=== PATIENT | female | born 1940 ===

== ENCOUNTER 2017-08-06 10:47 | Inpatient (IN) | payer BC, OTHER ==
[2017-06-29 11:24] VITALS: BMI 26.0
--- NOTE | 2017-06-29 11:58 | PAT Medication Instructions ---
Service Date Jun 29, 2017. Current Home Medication List Aspirin (Aspirin Ec), 81 MG PO QAM Calcium/Vitamin D (Os-Shimon 500 Plus D), 1 TAB PO QAM Carbidopa (Carbidopa), 25 MG PO QID Carbidopa/Levodopa (Sinemet 25MG/100MG), 1 TAB PO TID Carbidopa/Levodopa (Sinemet Cr 25MG/100MG), 2 TAB PO HS Cyanocobalamin (Vitamin B-12), 1,000 MCG PO QAM Rasagiline Mesylate (Azilect), 1 MG PO QAM Medication Instructions For Your Scheduled Surgery - Hold the following medications 2 weeks prior to surgery: Rasagiline Mesylate (Azilect), 1 MG PO QAM (okay per neurology) - Hold the following medications the morning of surgery: Cyanocobalamin (Vitamin B-12), 1,000 MCG PO QAM Calcium/Vitamin D (Os-Shimon 500 Plus D), 1 TAB PO QAM - Take the following medications the morning of surgery with a sip of water: Carbidopa/Levodopa (Sinemet 25MG/100MG), 1 TAB PO TID Carbidopa (Carbidopa), 25 MG PO QID Aspirin (Aspirin Ec), 81 MG PO QAM - Take the following medications as scheduled the night before surgery: Carbidopa (Carbidopa), 25 MG PO QID Carbidopa/Levodopa (Sinemet Cr 25MG/100MG), 2 TAB PO HS Carbidopa/Levodopa (Sinemet 25MG/100MG), 1 TAB PO TID If you have any questions please call us at [phone] or [phone] or [phone]
--- NOTE | 2017-06-29 12:51 | DIAGNOSTIC IMAGING REPORT ---
CHEST PREADMISSION(PA/LAT) HISTORY: 76 years-old Female PAT preadmission exam. No acute chest complaints COMPARISON: None available TECHNIQUE: Frontal and lateral views of the chest FINDINGS: Cardiomediastinal and hilar silhouettes are within normal limits. There is atherosclerosis of the aorta. No pneumothorax, pleural effusion, focal airspace consolidation or overt pulmonary edema. Hazy bibasilar opacities on the frontal projection are not appreciated on the lateral view, likely secondary to composite density artifact. The bones appear grossly intact. Cholecystectomy clips are noted. IMPRESSION: No acute cardiopulmonary process. The above report was generated using voice recognition software. It may contain grammatical, syntax or spelling errors. Electronically signed by: Tyler Rea M.D. 06/29/2017 12:50 PM Dictated Date/Time: 06/29/2017 12:49 PM
[2017-06-29 13:05] LABS: PTT PATIENT 25.9 SECONDS (21.0-31.0)
[2017-06-29 13:31] LABS: HEMOGLOBIN A1C 6.4 % (4.5-5.6)
[2017-06-29 13:36] LABS: ALBUMIN 3.5 gm/dl (3.4-5.0); CALCIUM 9.5 mg/dl (8.5-10.1); CREATININE 0.96 mg/dl (0.60-1.20); POTASSIUM 4.8 mmol/L (3.5-5.1)
--- NOTE | 2017-07-11 11:53 | HISTORY & PHYSICAL EXAMINATION ---
DATE OF ADMISSION: 07/12/2017 CHIEF COMPLAINT: Painful left total knee. HISTORY OF PRESENT ILLNESS: The patient is a 76-year-old female status post previous left total knee arthroplasty by an outside physician. She was recently evaluated by Dr. West for ongoing pain and disability. X-rays were suggestive of possible loosening about her tibial and femoral components. She had infectious workup with negative blood work and aspiration. She had a bone scan which was suggestive of possible aseptic loosening. She is now scheduled for a left total knee revision arthroplasty. PAST MEDICAL HISTORY: Parkinson's disease, peripheral neuropathy, restless leg syndrome, type 2 diabetes. PAST SURGICAL HISTORY: Left total knee as above, cholecystectomy. MEDICATIONS: Carbidopa 25 mg 3 times daily, calcium plus D 500/400 mg twice daily, Azilect 1 mg daily, carbidopa/levodopa 25/100 two tablets at bedtime, carbidopa/levodopa 25/100 four times daily, aspirin 81 mg daily, vitamin B12 250 mcg daily, Voltaren gel as needed. ALLERGIES: OMEPRAZOLE, PATANOL, ROFECOXIB, SULFA. SOCIAL HISTORY AND REVIEW OF SYSTEMS: Noncontributory. PHYSICAL EXAMINATION: GENERAL: Well-nourished, well-developed elderly lady who appears her stated age. HEAD, EYES, EARS, NOSE, AND THROAT: Normocephalic, atraumatic, extraocular movements intact, oropharynx pink and moist. NECK: Supple without adenopathy. LUNGS: Clear to auscultation bilaterally. HEART: Regular rate and rhythm. ABDOMEN: Soft, nontender, nondistended. EXTREMITIES: The upper extremity within normal limits. The left knee is neutrally aligned. She has a well-healed midline incision from her previous arthroplasty. Her range of motion from 0-120 degrees. X-RAYS: X-rays were reviewed. She has a total knee in place. There is lucency about both the femoral and tibial components. Her bone scan shows increased uptake about both femoral and tibial components suggestive of possible aseptic loosening. ASSESSMENT: Left knee pain status post previous total knee arthroplasty, likely aseptic loosening. PLAN: The above discussed with the patient. Risks versus benefits were discussed. Consent was obtained. The patient's primary care physician is Dr. Clayton. She has had previous blood work and aspiration which was negative for septic process. Will proceed with left total knee revision arthroplasty upon preop workup and medical clearance.
[~2017-08-06] VITALS: Ht 157.5 cm; Wt 65.0 kg
[2017-08-06] VITALS (7 sets, daily range): BP systolic 93–135; BP diastolic 57–69; PULSE 61–79; TEMP 36.3–36.6; O2SAT 93–99; Ht 157.5 cm; Wt 65.0 kg
[~2017-08-06 10:47] MED LIST: ACETAMINOPHEN 500 MG TAB PO SCH; ASPI81TA28 PO; BUPIVACAINE 0.25% 30 ML VIAL ONE; BUPIVACAINE 0.5 % 5 MG/1 ML PF 10ML VIAL ONE; CALC500C70 PO; CARB1TAB94 PO; CARB25TA12 PO; CARB25TA16 PO; CYAN10005 PO; CeleBREX 200 MG CAP PO SCH; DEXAMETHASONE 4 MG TAB PO SCH; DEXAMETHASONE SOD INJ 4 MG/ML VIAL ONE; EpINEphrine INJ 1MG/ML AMP 1 MG/ML AMP ONE; FAMOTIDINE 20 MG TAB PO SCH; GABAPENTIN 300 MG CAP PO SCH; LACTATED RINGER'S 1000ML 1,000 ML IV SCH; LACTATED RINGER'S 1000ML 500 ML IV ONE; LACTATED RINGER'S 1000ML IV SCH; METOCLOPRAMIDE HCL 10 MG TAB PO SCH; RASA1TAB PO; ROPIVACAINE 5MG/ML 30 ML 150 MG, BUPIVACAINE 0.5% MPF INJ 30 ML, EpINEphrine HCL INJ 0.... INFIL SCH; ROPIVACAINE 5MG/ML 30 ML 150 MG, BUPIVACAINE/EPINEPHR 0.5% MPF 30 ML, KETOROLAC TROMETH... INFIL SCH; TRANEXAMIC ACID INJ 1,000 MG in SODIUM CHLORIDE 0.9% 100ML 100 ML IV SCH; TRANEXAMIC ACID INJ 1,000 MG in SYRINGE 0 ML IV SCH; VANCOMYCIN 1GM ED/ASU OMNICELL 270 ML IV SCH; [UNRECOGNIZED DRUG - REMARK] SCH
--- NOTE | 2017-08-06 10:56 | History & Physical Bridge Note ---
H&P Re-Evaluation Bridge Note: I have examined the patient, reviewed the History & Physical and in the interval since the performance of the History & Physical I have noted the following changes of clinical significance: No changes noted
[2017-08-06] MEDS ORDERED: ONDANSETRON INJ 2 MG/ML 2 ML VIAL ONE (11:10)
[2017-08-06] MEDS ORDERED: LIDOCAINE HCL 2% 2 ML VIAL (20MG/ML) ONE (11:10)
[2017-08-06] MEDS ORDERED: PROPOFOL IV EMULSION 10 MG/ML 20 ML VIAL IV ONE ×2 (11:10→14:40)
[2017-08-06] MEDS ORDERED: FENTANYL CITRATE INJ 50 MCG/1 ML 2 ML VIAL ONE (11:11)
[2017-08-06] MEDS ORDERED: MIDAZOLAM HCL 1 MG/ML 2ML VIAL ONE (11:11)
--- NOTE | 2017-08-06 11:54 | History & Physical Bridge Note ---
H&P Re-Evaluation Bridge Note: I have examined the patient, reviewed the History & Physical and in the interval since the performance of the History & Physical I have noted the following changes of clinical significance: No changes notedDate of service now 08/06/2017
[2017-08-06] MEDS ORDERED: ATROPINE SULFATE 0.1 MG/ML 5ML SYR IV PRN (12:00)
[2017-08-06] MEDS ORDERED: ONDANSETRON INJ 2 MG/ML 2 ML VIAL IV PRN ×2 (12:00→15:45)
[2017-08-06] MEDS ORDERED: EpHEDrine SULFATE INJ 50 MG/ML AMP IV PRN (12:00)
[2017-08-06] MEDS ORDERED: CARBIDOPA PO (12:27)
[2017-08-06] MEDS ORDERED: BACITRACIN 50000 UNIT VIAL ONE (12:32)
[2017-08-06] MEDS ORDERED: ORTHO JOINT ANESTHETIC ONE (12:32)
[2017-08-06] MEDS ORDERED: POVIDONE-IODINE OP SOLN 30 ML BTL ONE (12:35)
[2017-08-06] MEDS: TRANEXAMIC ACID INJ 1,000 MG in SYRINGE 0 ML IV SCH ×2 (12:51→16:52)
[2017-08-06] MEDS ORDERED: EpHEDrine SULFATE INJ 50 MG/ML AMP ONE (14:02)
--- NOTE | 2017-08-06 15:14 | OPERATIVE REPORT ---
DATE OF OPERATION: 08/06/2017 PREOPERATIVE DIAGNOSIS: Aseptic loosening, left total knee. POSTOPERATIVE DIAGNOSIS: Aseptic loosening, left total knee. PROCEDURE: Revision left total knee. IMAGING NURSE: Alex Huynh PA-C. ANESTHESIA: Spinal. COMPLICATIONS: None. NOTE: Mr. Huynh was essential throughout all portions of the case including positioning, prepping, draping, executive marketing assistant, wound closure and dressing application. DESCRIPTION OF PROCEDURE: Following induction of spinal anesthesia, the patient's left leg was prepped and draped in usual sterile manner. Limb was exsanguinated with an Esmarch bandage, tourniquet inflated to 300 mmHg. Previously made incision was reopened. Subcutaneous tissue was sharply dissected. Electrocautery was used for hemostasis. The median parapatellar incision was made and a complete synovectomy was carried out. The medial face of the tibia was cleared using electrocautery and a Noriega and scar on the undersurface of the patella was removed to further mobilize the patella. A lateral snip was required. Following this, the tibia was removed. The knee was brought into flexion and flexible osteotome was used to free the undersurface of the femoral component which was then disimpacted with a punch and a mallet. The cruciate ligaments were removed with a fragment of bone from the intercondylar notch. Next, attention was turned to the tibia where the tool was used to grasp the proximal tibia and this was disimpacted with ease after undermining the tibia with both oscillating and reciprocating saws. The patella was felt to be intact. The canals were first opened using a drill and sequential reamings were carried up to a size 10 on the tibial side and a size 15 on the femoral side. Tibial cleanup cut was made and a 4 mm offset was chosen for the tibia and the proximal tibia was prepared using the box reamer and punch and a mallet. Next, this reamer was utilized and trial tibial component was cemented into position. After further opening the proximal tibia slightly with the boss reamer medially and laterally, the tibia was impacted into position. The sequential scarring from the posterior aspect of the tibia was removed using a Bovie. Next, attention was turned to the distal femur where a size 4 tibia was chosen as the size to be used. The decision made to go with both 5 mm posterior and 5 mm distal augments. These cuts were made using appropriate slots and the intercondylar notch was cut using the reciprocating saw. Following this, the trial femur was assembled and some additional anterior trimming using an oscillating saw was carried out. The trial femur was impacted in position and trials using the polyethylene were noted to give good reproduction of soft tissue tension with good ligament balance in flexion and extension using a 13 mm poly. Constrained poly was not required. Following this, all trials were removed. The final components were assembled on the back table and the knee was thoroughly irrigated with pulsatile irrigation. Perioperative joint mix was placed posteriorly and medially and laterally. Cement was mixed and the final components were cemented into position. After removal of all excess cement, the knee was thoroughly irrigated with pulsatile irrigation. A lateral snip was closed using #1 FiberWire suture. The Betadine soak was utilized and the wound was closed over Hemovac drain using #1 Mersilene. Subcutaneous tissue was closed using 0 Dexon. Skin was closed with ____. A sterile dressing of Silverlon, sterile Webril, and Chip was applied. The patient tolerated the procedure well. I attest to the content of the Intraoperative Record and any orders documented therein. Any exceptions are noted below. JESSICA
[2017-08-06] MEDS ORDERED: DiphenhydrAMINE HCL 50 MG/ML VIAL IV PRN (15:45)
[2017-08-06] MEDS ORDERED: BISACODYL 10 MG SUPP PR PRN (15:45)
[2017-08-06] MEDS ORDERED: MoRPHine SULFATE 2 MG/ML CARP IV PRN (15:45)
[2017-08-06] MEDS ORDERED: SOD PHOSPHATE/SOD BIPHOSPHATE ENEMA 132 ML BTL PR PRN (15:45)
[2017-08-06] MEDS ORDERED: MAGNESIUM HYDROXIDE SUSP 30 ML UDC PO PRN (15:45)
[2017-08-06] MEDS ORDERED: TRAMADOL HCL 50 MG TAB PO PRN (15:45)
[2017-08-06] MEDS ORDERED: ZOLPIDEM TARTRATE 5 MG TAB PO PRN (15:45)
--- NOTE | 2017-08-06 16:09 | Anesthesiology Progress Note ---
Anesthesia Post Op Note Date & Time Aug 06, 2017 at 16:08 Vital Signs Pain Intensity: 0 Vital Signs Past 12 Hours Date Time Temp Pulse Resp B/P (MAP) Pulse Ox O2 Delivery O2 Flow Rate FiO2 08/06/17 16:05 36.8 70 16 114/54 97 Nasal Cannula 2 08/06/17 16:00 70 16 106/55 98 Nasal Cannula 2 08/06/17 15:50 69 16 108/53 98 Nasal Cannula 2 08/06/17 15:40 70 16 106/55 100 Oxymask 10 08/06/17 15:30 36.7 69 16 110/52 100 Oxymask 10 08/06/17 11:43 36.6 74 20 135/68 96 Room Air Notes Mental Status: alert / awake / arousable, participated in evaluation Pt Amnestic to Procedure: Yes Nausea / Vomiting: adequately controlled Pain: adequately controlled Airway Patency, RR, SpO2: stable & adequate BP & HR: stable & adequate Hydration State: stable & adequate Neuraxial Anesthesia: was administered, sensory block is resolving Anesthetic Complications: no major complications apparent
--- NOTE | 2017-08-06 16:21 | DIAGNOSTIC IMAGING REPORT ---
L KNEE 1 OR 2 VIEWS ROUTINE HISTORY: 76 years-old Female AP/LATERAL IN PACU LEFT KNEE status post left knee total joint arthroplasty. Degenerative joint disease. COMPARISON: None available TECHNIQUE: 2 views of the left knee FINDINGS: Postoperative changes compatible with a hinged total joint arthroplasty and patellar resurfacing are noted. Anterior midline skin reyes. Expected postsurgical soft tissue swelling and deep tissue air with surgical drain in place. No periprosthetic fracture, malalignment or retained foreign body identified. IMPRESSION: Status post placement of a hinged left knee total joint arthroplasty with patellar resurfacing. No complication identified. The above report was generated using voice recognition software. It may contain grammatical, syntax or spelling errors. Electronically signed by: Tyler Rea M.D. 08/06/2017 4:20 PM Dictated Date/Time: 08/06/2017 4:19 PM
[2017-08-06] MEDS: SODIUM CHLORIDE 0.9% 1000ML 1,000 ML IV SCH (18:01)
[2017-08-06] MEDS: ACETAMINOPHEN 500 MG TAB PO SCH (18:03)
[2017-08-06] MEDS: KETOROLAC TROMETHAMINE 15 MG/ML VIAL IV. SCH ×2 (18:03→21:45)
[2017-08-06] MEDS ORDERED: NURSING VERBAL MED ORDER ONE ×2 (18:30→18:45)
[2017-08-06] MEDS ORDERED: CARBIDOPA/LEVODOPA 25/100MG TAB PO SCH ×3 (18:45→21:00)
[2017-08-06] MEDS: CEFAZOLIN IV 2,000 MG in SYRINGE 0 ML IV SCH (19:57)
[2017-08-06] MEDS ORDERED: CARBIDOPA/LEVODOPA 25/100MG EXT REL TAB PO SCH ×2 (21:00)
[2017-08-06] MEDS: CARBIDOPA/LEVODOPA 25/100MG TAB PO SCH (21:07)
[2017-08-06] MEDS: SENNA 8.6 MG TAB PO SCH (21:08)
[2017-08-06] MEDS: ASPIRIN 81 MG ECTAB PO SCH (21:08)
[2017-08-06] MEDS: CARBIDOPA/LEVODOPA 25/100MG EXT REL TAB PO SCH (21:08)
--- NOTE | 2017-08-06 21:59 | NUR ---
ID: Pt arrived on the floor at 1620 today. She is now A&Ox4. Pain is being controlled with routine medications. Pt has baseline numbness/tingling in her feet bilaterally, but is still unable to plantar/dorsiflex. Exercises were completed at bedside with the CITY DETECTIVE to the best of the patient's abilities, but she is still not safe to get out of bed. Lungs clear on room air. Tolerating diet (patient is on a type two diabetic diet, but states that she has been prediabetic for "13 years" and takes no medications for this; charge nurse aware). Voiding in the bedpan at this time. Patient is able to roll/self position in bed with minimal assistance. Dressing is clean, dry and intact. HV and Prevena are intact. IV fluids are infusing per MD order. Discharge plan is uncertain at this time. Call stoddard in reach, encouraged to ring for assistance. Will continue to monitor for changes.
[2017-08-07] MEDS: SODIUM CHLORIDE 0.9% 1000ML 1,000 ML IV SCH ×2 (02:47→11:31)
[2017-08-07] MEDS: ACETAMINOPHEN 500 MG TAB PO SCH ×3 (02:48→17:49)
[2017-08-07 03:19] VITALS: BP 99/52; PULSE 64; TEMP 36.5; O2SAT 93
[2017-08-07] MEDS: KETOROLAC TROMETHAMINE 15 MG/ML VIAL IV. SCH ×2 (03:27→09:27)
[2017-08-07] MEDS: CEFAZOLIN IV 2,000 MG in SYRINGE 0 ML IV SCH (03:27)
[2017-08-07 07:18] VITALS: BP 94/58; PULSE 65; TEMP 36.5; O2SAT 94
[2017-08-07] MEDS ORDERED: DEXAMETHASONE INJ 10 MG in SYRINGE 0 ML IV ONE (07:30)
[2017-08-07 07:44] LABS: HEMATOCRIT 33.7 % (37-47); HEMOGLOBIN 10.8 g/dL (12.0-16.0); MEAN CELL VOLUME 85.5 fL (80-100); MEAN CORPUSCULAR HEMOGLOBIN 27.4 pg (25-34); PLATELET COUNT 186 K/uL (130-400); RED CELL DISTRIBUTION WIDTH CV 13.1 % (11.5-14.5); RED CELL DISTRIBUTION WIDTH SD 41.4 fL (36.4-46.3); WHITE BLOOD COUNT 11.79 K/uL (4.8-10.8)
--- NOTE | 2017-08-07 08:05 | Anesthesiology Progress Note ---
Anesthesia Post Op Note Date & Time Aug 07, 2017 at 08:04 Vital Signs Pain Intensity: 0.0 Vital Signs Past 12 Hours Date Time Temp Pulse Resp B/P (MAP) Pulse Ox O2 Delivery O2 Flow Rate FiO2 08/07/17 07:18 36.5 65 17 94/58 (70) 94 Room Air 08/07/17 03:19 36.5 64 17 99/52 (68) 93 Room Air 08/06/17 23:18 Room Air 08/06/17 23:02 36.5 61 16 93/57 (69) 93 Room Air Notes Mental Status: alert / awake / arousable, participated in evaluation Pt Amnestic to Procedure: Yes Nausea / Vomiting: adequately controlled Pain: adequately controlled Airway Patency, RR, SpO2: stable & adequate BP & HR: stable & adequate Hydration State: stable & adequate Neuraxial Anesthesia: sensory block resolved Anesthetic Complications: no major complications apparent
[2017-08-07 08:10] LABS: CALCIUM 8.1 mg/dl (8.5-10.1); CREATININE 0.92 mg/dl (0.60-1.20); POTASSIUM 4.4 mmol/L (3.5-5.1)
[2017-08-07] MEDS: CYANOCOBALAMIN 500 MCG TAB (VIT B-12) PO SCH (08:58)
[2017-08-07] MEDS: ASPIRIN 81 MG ECTAB PO SCH ×2 (08:58→21:14)
[2017-08-07] MEDS: MULTIVITAMIN TAB PO SCH (08:58)
[2017-08-07] MEDS: PANTOprazole SOD 40 MG TAB PO SCH (08:58)
[2017-08-07] MEDS: CARBIDOPA/LEVODOPA 25/100MG TAB PO SCH ×4 (08:59→21:15)
--- NOTE | 2017-08-07 10:17 | NUR ---
Case Management: Met with pt at bedside. Pt states she lives alone. she plans to go to her daughter's home on discharge. Reports her daughter's home is a ranch style home with 7-8 steps to enter. Reports there is railing but only on the top steps. She has a wheeled walker but reports she is independent with ADLs and ambulation. She plans to return home with home health. Choice offered and she requests referral to [facility]. I spoke to intake at [facility]. They requested referral be faxed but states they should be able to accept pt. Referral faxed. Case Management to follow. Addendum: 08/07/17 at 1325 by Alessandra Turner SERV Received call from [facility] stating they are unable to accept pt due to staffing. Met with pt and choices offered. Pt agreeable to a referral to [facility]. Referral faxed then placed in VNA box.
--- NOTE | 2017-08-07 11:05 | NUR ---
ID Note: Patient is resting in chair comfortably. Currently denies pain. Vital signs stable. Dressing intact. IV fluids infusing per MDs orders. Ambulating with assist of one and a walker. Discharge uncertain at this time. Call stoddard within reach. Will continue to monitor.
[2017-08-07 11:06] VITALS: BP 103/60; PULSE 60; O2SAT 95
[2017-08-07 11:47] VITALS: BP 103/60; PULSE 60; O2SAT 95
[2017-08-07] MEDS: OXYCODONE HCL IR 5 MG TAB (IMMEDIATE RELEASE) PO PRN (12:40)
--- NOTE | 2017-08-07 13:11 | Orthopedic Progress Note ---
Orthopedic Progress Note Date of Service Aug 07, 2017. Subjective Post OP Day: 1 Reports: feeling well, Denies: chest pain, SOB, nausea / vomiting, light headedness, calf pain Objective calves soft nontender, N/V intact (+LLE FOOT DROP), capillary refill less than 2 sec., dressing C/D/I, A&O x3, toes mobile, hemovac drainage (60/50CC PER SHIFT ) Date Time Temp Pulse Resp B/P (MAP) Pulse Ox O2 Delivery O2 Flow Rate FiO2 08/07/17 11:47 60 95 08/07/17 11:06 60 15 103/60 (74) 95 Room Air 08/07/17 07:30 Room Air 08/07/17 07:18 36.5 65 17 94/58 (70) 94 Room Air 08/07/17 03:19 36.5 64 17 99/52 (68) 93 Room Air 08/06/17 23:18 Room Air 08/06/17 23:02 36.5 61 16 93/57 (69) 93 Room Air 08/06/17 19:30 36.4 73 18 101/62 (75) 93 Room Air 08/06/17 18:30 36.5 79 18 112/67 (82) 93 Room Air 08/06/17 17:23 36.4 62 18 108/65 (79) 99 Nasal Cannula 3.0 08/06/17 16:50 36.3 69 16 106/62 (77) 98 Nasal Cannula 2.0 08/06/17 16:20 98 Nasal Cannula 2.0 08/06/17 16:20 36.6 72 14 110/69 (83) 98 Nasal Cannula 2.0 08/06/17 16:20 Nasal Cannula 2.0 08/06/17 16:05 36.8 70 16 114/54 97 Nasal Cannula 2 08/06/17 16:00 70 16 106/55 98 Nasal Cannula 2 08/06/17 15:50 69 16 108/53 98 Nasal Cannula 2 08/06/17 15:40 70 16 106/55 100 Oxymask 10 08/06/17 15:30 36.7 69 16 110/52 100 Oxymask 10 Laboratory Results 24 Hours: Test 08/07/17 07:32 Hematocrit 33.7 % Hemoglobin 10.8 g/dL Assessment & Plan Assessment: POD#1 SP REVISION LEFT TKA Plan: PT/OT DVT PROPH- ASA 81MG BID PAIN MANAGEMENT DC PLANNING- HOME WITH HOME PT WEDS. FOOT DROP- LIKELY FROM LOCAL INJ. WILL MONITOR.
--- NOTE | 2017-08-07 13:15 | Discharge Instructions ---
Discharge Instructions Date of Service Aug 07, 2017. Admission Reason for Admission: Mechanical Loosening On Left Knee Prosthetic Joint Discharge Discharge Diagnosis / Problem: SP REVISION LEFT TKA Discharge Goals Goal(s): Decrease discomfort, Improve function, Increase independence Activity Recommendations Activity Limitations: per Instructions/Follow-up section . Instructions / Follow-Up Instructions / Follow-Up ACTIVITY RECOMMENDATIONS: SELF CARE INSTRUCTIONS AFTER TOTAL KNEE REPLACEMENT A. You may need to continue a physical therapy program after discharge from the hospital. There are several options available to you. Your doctor will assist you in selecting the best one for you. 1. An out-patient facility 2 to 3 times a week for therapy or home therapy. 2. Continue working on all exercises taught to you in the hospital. Your goals should be to increase bending of your knee to 90 degrees and beyond and to fully straighten your knee. B. You may progress at your own pace from walking with a walker or crutches to a cane; then to no assistive devices. C. Make walking a part of your daily routine. Be up as much as comfortable with rest periods throughout the day. Rest with leg elevation is very important. Use the ice wrap frequently for the first 3-4 weeks. D. There are no restrictions on activities. You may ride in a car, shop, participate in skein washer and all social activities. E. Wear the long elastic stockings (MATEUS hose) 20 hours a day for 2 weeks after surgery. They can be removed several times a day for laundering and for a bath. F. You may shower, no tub baths until cleared by your doctor. SPECIAL CARE INSTRUCTIONS: VERY IMPORTANT TO READ AND REVIEW A. There are a few signs you need to watch for after you are home. Call [facility] if you notice any of the followin. Increased severe knee pain. Some pain is expected especially when you exercise. 2. Increased swelling in your leg or knee; pain or swelling of the calf muscle in either lower leg. 3. Any fluid drainage from the incision. 4. Shortness of breath or chest pain. B. Please call [facility] at if you have any concerns or questions about your operation or recovery. The doctor or his nurse will return your call promptly. C. You must take antibiotics before dental work, bladder, bowel or other surgery. Your doctor will provide you with a permanent care to carry describing this precaution. IMPORTANT: * REMEMBER TO TAKE ASPIRIN, 81 MG, TWICE DAILY FOR 4 WEEKS UNLESS OTHERWISE DIRECTED. THIS IS YOUR BLOOD THINNER. * HIGH RISK PATIENTS MAY BE PRESCRIBED A STRONGER BLOOD THINNER. THIS WILL BE PROVIDED AT DISCHARGE. * CALL IF INCREASED PAIN, REDNESS, DRAINAGE OR FEVER GREATER THAT 101. * WEAR MATEUS HOSE 20 HOURS PER DAY FOR 2 WEEKS. Prevena- This is a large suction dressing covering your incision. This will help pull any excess drainage from the wound and allow your incision to heal properly. You may shower with this if you can keep the unit outside of the shower. If any bleeding or leakage is noted please call your doctor's office. This will remain on your incision for 7 days and then should be removed. This can be done yourself or by the home nursing staff if applicable. The entire unit is disposable once removed. Once removed, keep incision clean and dry. If redness or drainage is noted, please call your surgeon. FOLLOW UP VISIT: If appointment is not already scheduled: Please call [facility] to make a follow-up appointment for 2 weeks after your surgery at . Current Hospital Diet Patient's current hospital diet: Diabetes Type 2 Diet Discharge Diet Recommended Diet: Regular Diet Procedures Procedures Performed: Left total knee arthroplasty revision Pending Studies Studies pending at discharge: no Laboratory Results Hemoglobin A1c Test 06/29/17 12:12 Range/Units Estimated Average Glucose 137 mg/dl Hemoglobin A1c 6.4 H 4.5-5.6 % Medical Emergencies . Who to Call and When: Medical Emergencies: If at any time you feel your situation is an emergency, please call 911 immediately. . Non-Emergent Contact Non-Emergency issues call your: Primary Care Provider, Surgeon . "Provider Documentation" section prepared by Rosalinda Szymanski. . VTE Core Measure Inpt VTE Proph given/why not?: Other Anticoagulation, T.E.DLida Cosby, SCD's [place] Drug Monitoring Program Search Results: patient reviewed within database, no issues identified
[2017-08-07 15:01] VITALS: BP 106/63; PULSE 58; TEMP 36.4; O2SAT 97
--- NOTE | 2017-08-07 15:49 | NUR ---
ID: Pt A/O x 4. Denies pain at this time. X1 assist with a walker to the bathroom. NS @ 100ml/hr in the left hand. 1750 on the triflow on RA. CO baseline neuropathy bilateral feet and left leg. 3/5 pedal push on the left and 4/5 right. Pt has hx of parkinson's dz. Tolerating a DMT2 diet, pt states she is prediabetic, no insulin coverage ordered at this time. Voids in the toilet. KENTRELL wrap is clean dry and intact. Hemovac is draining a small amount of bloody drainage. Prevena Wound Vac is holding suction, green light on with no drainage. PT to be D/C with [place] [facility] 1 level house. Bed in low and locked position, call stoddard in reach, pt rings appropriately.
[2017-08-07] MEDS: ALUMINUM/MAGNESIUM/SIMETH (MAALOX MAX) 30 ML UDC PO PRN (20:11)
[2017-08-07] MEDS: CeleBREX 200 MG CAP PO SCH (21:14)
[2017-08-07] MEDS: CARBIDOPA/LEVODOPA 25/100MG EXT REL TAB PO SCH (21:15)
[2017-08-07] MEDS: SENNA 8.6 MG TAB PO SCH (21:52)
[2017-08-07 23:30] VITALS: BP 130/66; PULSE 74; TEMP 36.7; O2SAT 94
[2017-08-08] VITALS (7 sets, daily range): BP systolic 100–140; BP diastolic 58–69; PULSE 61–73; TEMP 36.5–37.2; O2SAT 93–97
[2017-08-08] MEDS: ALUMINUM/MAGNESIUM/SIMETH (MAALOX MAX) 30 ML UDC PO PRN ×2 (01:23→05:54)
[2017-08-08] MEDS: ACETAMINOPHEN 500 MG TAB PO SCH ×2 (01:51→12:19)
[2017-08-08] MEDS: OXYCODONE HCL IR 5 MG TAB (IMMEDIATE RELEASE) PO PRN ×2 (07:46→13:07)
[2017-08-08] MEDS: CARBIDOPA/LEVODOPA 25/100MG TAB PO SCH ×2 (07:49→12:17)
[2017-08-08] MEDS: CYANOCOBALAMIN 500 MCG TAB (VIT B-12) PO SCH (09:14)
[2017-08-08] MEDS: MULTIVITAMIN TAB PO SCH (09:14)
[2017-08-08] MEDS: PANTOprazole SOD 40 MG TAB PO SCH (09:14)
[2017-08-08] MEDS: ASPIRIN 81 MG ECTAB PO SCH (10:38)
[2017-08-08] MEDS: CeleBREX 200 MG CAP PO SCH (10:39)
--- NOTE | 2017-08-08 12:30 | Orthopedic Progress Note ---
Orthopedic Progress Note Date of Service Aug 08, 2017. Subjective Post OP Day: 2 Reports: feeling well, Denies: chest pain, SOB, nausea / vomiting, light headedness, calf pain Objective calves soft nontender, N/V intact (FULL DORSI/PLANTARFLEXION), capillary refill less than 2 sec., dressing C/D/I, A&O x3, toes mobile Date Time Temp Pulse Resp B/P (MAP) Pulse Ox O2 Delivery O2 Flow Rate FiO2 08/08/17 11:25 36.5 61 16 126/58 (80) 96 Room Air 08/08/17 10:28 66 97 08/08/17 09:07 96 Room Air 08/08/17 07:39 140/60 (86) 08/08/17 07:37 36.5 69 17 116/69 (85) 97 Room Air 08/08/17 07:35 Room Air 08/08/17 03:48 37.2 73 16 103/63 (76) 93 Room Air 08/07/17 23:36 Room Air 08/07/17 23:30 36.7 74 16 130/66 (87) 94 Room Air 08/07/17 15:49 Room Air 08/07/17 15:01 36.4 58 18 106/63 (77) 97 Room Air Assessment & Plan Assessment: POD#2 SP REVISION LEFT TKA Plan: PT/OT DVT PROPH- ASA 81MG BID PAIN MANAGEMENT DC PLANNING- HOME WITH HOME PT WEDS. DC HOME TODAY FOOT DROP- RESOLVED
[2017-08-08] MEDS ORDERED: SENN1TAB80 PO (12:34)
[2017-08-08] MEDS ORDERED: ACET-24 PO (12:34)
[2017-08-08] MEDS ORDERED: ONDA-170 PO (12:34)
[2017-08-08] MEDS ORDERED: ASPI81TA28 PO (12:34)
[2017-08-08] MEDS ORDERED: RXC5 PO ×2 (12:34→13:36)
[2017-08-08] MEDS ORDERED: CLB200 PO (12:34)
--- NOTE | 2017-08-08 14:16 | NUR ---
Case Management: Discharge instructions faxed to [facility].
--- NOTE | 2017-08-13 12:35 | DISCHARGE SUMMARY ---
DISCHARGE DIAGNOSIS: Aseptic loosening, left total knee arthroplasty. SECONDARY DIAGNOSES: Parkinson's disease, peripheral neuropathy, restless leg syndrome, and type 2 diabetes mellitus. CONSULTATIONS: None. COMPLICATIONS: None. PROCEDURES: Revision left total knee arthroplasty by Dr. West on 08/06/2017. BRIEF HISTORY: As dictated in the history and physical. HOSPITAL SUMMARY: The patient was admitted on the above date and had the above-noted surgery performed which she tolerated well. On her first postoperative day, she was feeling well and had no complaints. Calves were soft and nontender. She did have a left lower extremity foot drop and dressings were clean, dry and intact. Toes were toes were mobile for plantarflexion vice. Vital signs were stable. She was afebrile. Hemoglobin was 10.8. She was started on physical therapy protocol and continued on DVT prophylaxis and pain management. Foot drop was likely from intraoperative injection during the procedure and plans were to follow at this time. By her second postoperative day, she was feeling well and had no complaints. Her foot drop had resolved. Calves were soft and nontender. Neurovascularly was intact. Dressings were clean, dry and intact. Toes were mobile. She was progressing well with her physical therapy and was remaining stable and it was felt that she could be discharged to home. For further review, please see chart. LABORATORY AND X-RAY DATA: As per chart. DISCHARGE INSTRUCTIONS: The patient was discharged to home in satisfactory condition on 08/08/2017. DIET: Diabetic. ACTIVITY: Follow TK instruction sheets and special care instructions as noted. Follow up with Dr. West in 2 weeks. The patient to call for appointment if one has not been made for you. DISCHARGE MEDICATIONS: Acetaminophen 1000 mg p.o. q. 8 hours for 30 days, Celebrex 200 mg p.o. b.i.d., Zofran 8 mg p.o. q. 8 hours p.r.n., oxycodone 5 mg p.o. q. 4 hours p.r.n., sennosides 17.2 mg p.o. at bedtime. Resume home meds as listed. Aspirin 81 mg p.o. b.i.d. for 30 days and then resume once daily dosing and stop taking Azilect.
== END 2017-08-08 14:00 | disposition home health service (06) | DRG 468 ==
LOC: C.ACU 10:47 → C.3E 11:07 → ENRESERV 15:56
PROC: 0SRD0J9 Replacement of Left Knee Joint with Synthetic Substitute, Cemented, Open Approach (ICD-10-PCS; principal; 2017-08-06 13:45)
PROC: 0SPD0JZ Removal of Synthetic Substitute from Left Knee Joint, Open Approach (ICD-10-PCS; principal; 2017-08-06 13:45)
DX: T84.033A Mechanical loosening of internal left knee prosthetic joint, initial encounter (principal); E11.42 Type 2 diabetes mellitus with diabetic polyneuropathy; G25.81 Restless legs syndrome; G20 Parkinson's disease; Z79.899 Other long term (current) drug therapy; Z79.82 Long term (current) use of aspirin; Z96.652 Presence of left artificial knee joint; Y83.1 Surgical operation with implant of artificial internal device as the cause of abnormal reaction of the patient, or of later complication, without mention of misadventure at the time of the procedure